=== PATIENT | female | born 1955 | race African-American/Black ===

== ENCOUNTER 2023-03-01 20:41 | Emergency (ER) | payer OTHER, MEDICAID ==
[~2023-03-01] VITALS: Ht 152.4 cm; Wt 71.0 kg
[2023-03-01 20:50] VITALS: BP 161/74
[2023-03-01 21:19] LABS: Basophils # (auto) 0.1 10 ^3/uL (0-0.2); Eosinophils # (auto) 0.1 10 ^3/uL (0-0.8); Eosinophils % (auto) 1.7 % (0.0-7.0); Hematocrit 42.7 % (36.0-46.0); Hemoglobin 14.5 g/dL (12.2-16.2); Lymphocytes # (auto) 1.6 10 ^3/uL (0.4-5.4); Lymphocytes % (auto) 21.4 % (10.0-50.0); Mean Corpuscular Hemoglobin 29.4 pg (28.0-32.0); Mean Corpuscular Hgb Conc. 33.8 g/dL (32.0-36.0); Mean Corpuscular Volume 86.8 fL (80.0-100.0); Monocytes # (auto) 0.5 10 ^3/uL (0-1.3); Monocytes % (auto) 6.3 % (0.0-12.0); Neutrophils # (auto) 5.3 10 ^3/uL (1.6-8.6); Neutrophils % (auto) 69.6 % (37.0-80.0); Nucleated Red Blood Cells % 0.1 %; Red Blood Cells 4.93 10^6/uL (4.0-5.20); Red Cell Distribution Width 13.8 % (11.8-14.3); White Blood Cell 7.6 10^3/uL (4.4-10.8)
[2023-03-01 21:33] LABS: Albumin 3.5 g/dL (3.4-5.0); BUN/Creatinine Ratio 18.1 (10.0-20.0); Potassium 3.9 mmol/L (3.5-5.1)
[2023-03-01 21:34] LABS: INR 0.99 (0.9-1.15); Partial Thromboplastin Time 26.3 sec (24.6-33.4)
[2023-03-01 21:36] LABS: Bilirubin, Total 0.4 mg/dL (0.2-1.0); Total Protein 7.1 g/dL (6.4-8.2)
== END 2023-03-02 03:44 | disposition home or self-care (01) ==
LOC: ER 20:41
DX: I10 Essential (primary) hypertension (principal); R07.89 Other chest pain; R42 Dizziness and giddiness; E11.9 Type 2 diabetes mellitus without complications; F03.90 Unspecified dementia, unspecified severity, without behavioral disturbance, psychotic disturbance, mood disturbance, and anxiety; Z86.73 Personal history of transient ischemic attack (TIA), and cerebral infarction without residual deficits; Z88.5 Allergy status to narcotic agent; Z88.8 Allergy status to other drugs, medicaments and biological substances
CPT/HCPCS: 36415; 71045; 80053; 83735; 83880; 84484; 85025; 85610; 85730; 93005

== ENCOUNTER → 2024-08-25 | Outpatient (CLI) | payer OTHER ==
[2024-08-25 10:27] LABS: Basophils # (auto) 0.1 10 ^3/uL (0-0.2); Basophils % (auto) 1.3 % (0.0-2.0); Eosinophils # (auto) 0.2 10 ^3/uL (0-0.8); Eosinophils % (auto) 2.3 % (0.0-7.0); Hematocrit 42.9 % (36.0-46.0); Hemoglobin 15.1 g/dL (12.2-16.2); Lymphocytes # (auto) 2.2 10 ^3/uL (0.4-5.4); Lymphocytes % (auto) 30.8 % (10.0-50.0); Mean Corpuscular Hemoglobin 30.6 pg (28.0-32.0); Mean Corpuscular Hgb Conc. 35.2 g/dL (32.0-36.0); Mean Corpuscular Volume 86.9 fL (80.0-100.0); Monocytes # (auto) 0.5 10 ^3/uL (0-1.3); Monocytes % (auto) 7.1 % (0.0-12.0); Neutrophils # (auto) 4.1 10 ^3/uL (1.6-8.6); Neutrophils % (auto) 58.5 % (37.0-80.0); Nucleated Red Blood Cells % 0.1 %; Platelet Count (auto) 260 10^3/uL (140-450); Red Blood Cells 4.94 10^6/uL (4.0-5.20); Red Cell Distribution Width 13.1 % (11.8-14.3); White Blood Cell 7.1 10^3/uL (4.4-10.8)
[2024-08-25 10:36] LABS: Urine Blood Negative /uL (Negative); Urine Clarity Clear (Clear); Urine Color Light-Yellow (Yellow); Urine Protein, UAD Negative (Negative); Urine Specific Gravity 1.019 (1.001-1.035); Urine Urobilinogen Normal (Negative); Urine pH 5.5 (5.0-9.0)
[2024-08-25 10:59] LABS: Albumin 4.9 g/dL (3.2-4.8); Alkaline Phosphatase 63 U/L (46-116); Anion Gap 6 (5-15); Aspartate Aminotransferase 9 U/L (13-40); Bilirubin, Total 0.6 mg/dL (0.2-1.0); Blood Urea Nitrogen 22 mg/dL (9-23); Calcium 11.1 mg/dL (8.7-10.4); Carbon Dioxide 26 mmol/L (20-31); Chloride 103 mmol/L (98-107); Cholesterol 123 mg/dL (< 200); Glucose 173 mg/dL (74-106); HDL Cholesterol 45 mg/dL (40-59); LDL Cholesterol 64 mg/dL (< 100); Potassium 3.4 mmol/L (3.5-5.1); Sodium 135 mmol/L (136-145); Triglycerides 116 mg/dL (< 150)
[2024-08-25 11:00] LABS: Total Protein 7.9 g/dL (5.7-8.2)
[2024-08-25 11:01] LABS: Creatinine, Urine 67.52 mg/dL (30.0-125.0)
[2024-08-25 11:03] LABS: Micro Albumin < 3.0 mg/L (<30.0)
[2024-08-25 11:09] LABS: Alanine Aminotransferase < 9 U/L (7-40)
== END | disposition home or self-care (01) ==
LOC: LAB 09:58
DX: Z12.11 Encounter for screening for malignant neoplasm of colon (principal); E11.65 Type 2 diabetes mellitus with hyperglycemia; I10 Essential (primary) hypertension
CPT/HCPCS: 36415; 80053; 80061; 81003; 82043; 82306; 82570; 82607; 83036; 84443; 85025

== ENCOUNTER 2024-11-13 21:38 | Inpatient (IN) | payer OTHER ==
[~2024-11-13] VITALS: Ht 152.4 cm; Wt 60.4 kg
--- NOTE | 2024-11-13 21:53 | ED.PDOC ---
History of Present Illness HPI Comments 69-year-old female with PMHx Dementia, CVA, HTN, DM brought in by EMS presents with a chief complaint of s/p syncopal episode at home. Per EMS, patient had a syncopal episode at home and was assisted to the floor by family. Negative LOC or trauma. Patient only complaint at this time is "weak and tired". Patient is also incontinent to urine and diarrhea according to EMS. Patient has gait issues from a previous CVA in the past. No other symptoms or modifying factors present at this time. Chief Complaint: Syncope Time Seen by MD: 21:48 Reviewed Notes: Medications, Allergies Allergies: Coded Allergies: Acetaminophen (Verified Allergy, Unknown, 03/01/23) Hydrocodone (Verified Allergy, Unknown, 03/01/23) Information Source: Emergency Med Personnel Mode of Arrival: EMS Severity: Moderate Timing: Minutes Duration: Since onset Prehospital treatment: Accucheck (365) Past Medical History PAST MEDICAL HISTORY: CVA, Dementia, DM, HTN Surgical History: Denies all surgeries [employer] INTERN History: Denies all [employer] Hx Family History Family History: Reviewed,noncontributory to illness Social History Smoker: Non-Smoker Alcohol: Denies ETOH Use Drugs: Denies Drug Use Lives In: Home Constitutional: denies: chills, diaphoresis, fatigue, fever, malaise, sweats, weakness, others EENTM: denies: blurred vision, double vision, ear bleeding, ear discharge, ear drainage, ear pain, ear ringing, eye pain, eye redness, hearing loss, mouth pain, mouth swelling, nasal discharge, nose bleeding, nose congestion, nose pain, photophobia, tearing, throat pain, throat swelling, voice changes, others Respiratory: denies: cough, hemoptysis, orthopnea, SOB at rest, shortness of breath, SOB with excertion, stridor, wheezing, others Cardiovascular: reports: syncope; denies: chest pain, dizzy spells, diaphoresis, Dyspnea on exertion, edema, irregular heart beat, left arm pain, lightheadedness, palpitations, PND, others Gastrointestinal: denies: abdomen distended, abdominal pain, blood streaked bowels, constipated, diarrhea, dysphagia, difficulty swallowing, hematemesis, melena, nausea, poor appetite, poor fluid intake, rectal bleeding, rectal pain, vomiting, others Genitourinary: denies: abnormal vagina bleeding, burning, dyspareunia, dysuria, flank pain, frequency, hematuria, incontinence, pain, , vagina discharge, urgency, others Neurological: denies: dizziness, fainting, headache, left sided numbness, left sided weakness, numbness, paresthesia, pre-existing deficit, right sided numbness, right sided weakness, seizure, speech problems, tingling, tremors, weakness, others Musculoskeletal: denies: back pain, gout, joint pain, joint swelling, muscle pain, muscle stiffness, neck pain, others Integumetry: denies: bruises, change in color, change in hair/nails, dryness, laceration, lesions, lumps, rash, wounds, others Allergic/Immunocompromised: denies: Difficulty Healing, Frequent Infections, Hives, Itching, others Hematologic/Lymphatic: denies: anemia, blood clots, easy bleeding, easy bruising, swollen glands, others Endocrine: denies: excessive hunger, excessive sweating, excessive thirst, excessive urination, flushing, intolerance to cold, intolerance to heat, unexplained weight gain, unexplained weight loss, others Psychiatric: denies: anxiety, bipolar disorder, depression, hopeless, panic disorder, schizophrenia, sleepless, suicidal, others Unable to Obtain due to: Dementia All Other Systems: Reviewed and Negative Physical Exam General Appearance: No Apparent Distress, Thin HEENT: Normal ENT Inspection, Pharynx Normal, TMs Normal Neck: Full Range of Motion, Non-Tender, Normal, Normal Inspection Respiratory: Chest Non-Tender, Lungs Clear, No Accessory Muscle Use, No Respiratory Distress, Normal Breath Sounds Cardiovascular: No Edema, No JVD, No Murmur, No Gallop, Normal Peripheral Pulses, Regular Rate/Rhythm Breast Exam: Deferred Gastrointestinal: No Organomegaly, Non Tender, No Pulsatile Mass, Normal Bowel Sounds, Soft Genitalia: Deferred Pelvic: Deferred Rectal: Deferred Extremities: No calf tenderness, Normal capillary refill, Normal inspection, Normal range of motion, Non-tender, No pedal edema Musculoskeletal : Apperance: Normal Neurologic: Alert, record tabulating clerk II-XII nml as Tested, No Motor Deficits, Normal Affect, Normal Mood, No Sensory Deficits Cerebellar Function: Normal Reflexes: Normal Skin: Dry, Normal Color, Warm Lymphatic: No Adenopathy Was a procedure done? Was a procedure done?: No Differential Dx Considerations may include: ACS, CVA, electrolyte abnormality, pneumonia, infectious etiology him X-Ray, Labs, Meds, VS Vital Signs Date Time Temp Pulse Resp B/P (MAP) Pulse Ox O2 Delivery O2 Flow Rate FiO2 11/14/24 00:00 90 19 176/90 (118) 93 11/13/24 22:15 85 12 138/72 (94) 94 11/13/24 22:15 85 12 94 Room Air* 0 21 11/13/24 22:15 97.7 85 12 138/72 (94) 94 97.7 11/13/24 21:47 98.7 90 18 125/78 (94) 99 11/13/24 21:44 82 Lab Test 11/13/24 23:16 11/13/24 21:59 Range/Units Troponin I High Sensitivity 6 6 </=34 ng/L White Blood Count 7.5 4.4-10.8 10^3/uL Red Blood Count 5.36 H 4.0-5.20 10^6/uL Hemoglobin 16.1 12.2-16.2 g/dL Hematocrit 48.5 H 36.0-46.0 % Mean Corpuscular Volume 90.5 80.0-100.0 fL Mean Corpuscular Hemoglobin 30.0 28.0-32.0 pg Mean Corpuscular Hemoglobin Concent 33.1 32.0-36.0 g/dL Red Cell Distribution Width 13.8 11.8-14.3 % Platelet Count 234 140-450 10^3/uL Mean Platelet Volume 8.3 6.9-10.8 fL Neutrophils (%) (Auto) 69.6 37.0-80.0 % Lymphocytes (%) (Auto) 21.2 10.0-50.0 % Monocytes (%) (Auto) 6.6 0.0-12.0 % Eosinophils (%) (Auto) 1.5 0.0-7.0 % Basophils (%) (Auto) 1.1 0.0-2.0 % Neutrophils # (Auto) 5.2 1.6-8.6 10 ^3/uL Lymphocytes # (Auto) 1.6 0.4-5.4 10 ^3/uL Monocytes # (Auto) 0.5 0-1.3 10 ^3/uL Eosinophils # (Auto) 0.1 0-0.8 10 ^3/uL Basophils # (Auto) 0.1 0-0.2 10 ^3/uL Nucleated Red Blood Cells 0.0 % Sodium Level 137 136-145 mmol/L Potassium Level 4.0 3.5-5.1 mmol/L Chloride Level 106 98-107 mmol/L Carbon Dioxide Level 25 20-31 mmol/L Anion Gap 6 5-15 Blood Urea Nitrogen 12 9-23 mg/dL Creatinine 1.25 H 0.550-1.02 mg/dL Glomerular Filtration Rate Calc 47 >90 mL/min BUN/Creatinine Ratio 9.6 L 10.0-20.0 Serum Glucose 379 H 74-106 mg/dL Calcium Level 11.1 H 8.7-10.4 mg/dL Current Medications Medications (Trade) Dose Ordered Sig/Kishan Route Start Time Stop Time Status Last Admin Sodium Chloride 1,000 ml @ 1,000 mls/hr Q1H ONCE IV 11/13/24 22:00 11/13/24 22:59 DC 11/13/24 22:16 Calcium Carbonate (Tums) 500 mg ONCE ONCE PO 11/13/24 23:45 11/13/24 23:46 DC 11/13/24 23:38 Time of 1ST Reevaluation: 22:18 Reevaluation 1ST: Unchanged Patient Education/Counseling: Diagnosis, Treatment, Prognosis Family Education/Counseling: Diagnosis, Treatment, Prognosis Departure 1 Departure Time of Disposition: 00:52 (Patient presented with syncope today and should be admitted. Data: 1. I ordered and reviewed the result of at least 3 labs including a CBC, BMP, and troponin. 2. I independently interpreted the following tests: EKG which shows a sinus tachycardia and a chest x-ray which shows _ he is denying chest and a CT head which shows chronic infarct.Risk:This patient has a high risk of morbidity due to further diagnostic testing or treatment and may woods ffer from an acute cardiac, neurologic, or infectious disorder. Rationale: Patient should be admitted to the hospital for further management.) Impression: Primary Impression: Syncope and collapse Additional Impression: Fever Qualified Codes: R50.9 - Fever, unspecified Disposition: ADMITTED INPATIENT Admit to: Med Surg Condition: Serious Critical Care Note Critical Care Time?: No Stability Stability form required: No I personally scribed for MIHIR MARQUEZ MD ([email or web address]) on 11/13/24 at 21:53. Electronically submitted by Isac Gaitan ([email or web address]). MIHIR MARQUEZ MD Nov 13, 2024 21:53
[2024-11-13 22:08] LABS: Basophils # (auto) 0.1 10 ^3/uL (0-0.2); Basophils % (auto) 1.1 % (0.0-2.0); Eosinophils # (auto) 0.1 10 ^3/uL (0-0.8); Eosinophils % (auto) 1.5 % (0.0-7.0); Hematocrit 48.5 % (36.0-46.0); Hemoglobin 16.1 g/dL (12.2-16.2); Lymphocytes # (auto) 1.6 10 ^3/uL (0.4-5.4); Lymphocytes % (auto) 21.2 % (10.0-50.0); Mean Corpuscular Hgb Conc. 33.1 g/dL (32.0-36.0); Mean Corpuscular Volume 90.5 fL (80.0-100.0); Monocytes # (auto) 0.5 10 ^3/uL (0-1.3); Monocytes % (auto) 6.6 % (0.0-12.0); Neutrophils # (auto) 5.2 10 ^3/uL (1.6-8.6); Neutrophils % (auto) 69.6 % (37.0-80.0); Platelet Count (auto) 234 10^3/uL (140-450); Red Blood Cells 5.36 10^6/uL (4.0-5.20); Red Cell Distribution Width 13.8 % (11.8-14.3); White Blood Cell 7.5 10^3/uL (4.4-10.8)
[2024-11-13 22:15] VITALS: PULSE 85; RESP 12; O2SAT 94
[2024-11-13] MEDS: SODIUM CHLORIDE 0.9% 1,000 ML IV ONE (22:16)
[2024-11-13 22:19] LABS: Chloride 106 mmol/L (98-107); Sodium 137 mmol/L (136-145)
[2024-11-13 22:20] LABS: Anion Gap 6 (5-15); Carbon Dioxide 25 mmol/L (20-31)
[2024-11-13 22:25] LABS: BUN/Creatinine Ratio 9.6 (10.0-20.0); Blood Urea Nitrogen 12 mg/dL (9-23)
[2024-11-13 22:32] LABS: Calcium 11.1 mg/dL (8.7-10.4); Glucose 379 mg/dL (74-106)
--- NOTE | 2024-11-13 23:25 | ECG ---
[facility] Test Date: 2024-11-13 Test Time: 21:44:53 Pat Name: BRITT GALAN Department: ED Room: [address] [place] [address] Gender: F Tile Professional: KAY : 1955 Requested By: MIHIR MARQUEZ Order Number: [id number] Reading MD: Dick Robbins Measurements Intervals [place] Rate: 82 P: 26 OR: 134 QRS: 7 QRSD: 92 T: 78 QT: 389 QTc: 455 Interpretive Statements Sinus rhythm Probable left atrial enlargement Left ventricular hypertrophy Anterior Q waves, possibly due to LVH Nonspecific T abnormalities, lateral leads Baseline wander in lead(s) V4 Electronically Signed On 11-14-2024 13:12:19 PST by Dick Robbins Please click the below link to view image of tracing.
[2024-11-13] MEDS: CALCIUM CARB 500 MG CHEW TAB PO ONE (23:38)
--- NOTE | 2024-11-13 23:43 | DVH ---
EXAM: CT HEAD WITHOUT CONTRAST INDICATION: syncope TECHNIQUE: CT of the head without intravenous contrast. Radiation Dose Information: CT Dose: CTDI volume is 49.67 mGy. Dose-length product is 796.47 mGy*cm The dose indicators for CT are the volume Computed Tomography (CT) Dose Index (CTDIvol) and the Dose Length Product (DLP), and are measured in units of mGy and mGy-cm, respectively. These indicators are not patient dose, but values generated from the CT scanner acquisition factors. The report includes radiation exposure data for exposures received during this examination. COMPARISON: None FINDINGS: There is no evidence of acute intracranial hemorrhage, extra-axial collection, mass effect, midline s hift, herniation or hydrocephalus. Small area of decreased attenuation posterior limb of the internal capsule on the right consistent wi th small lacunar infarct. Prominent area of hypoattenuation left posterior parietal lobeobe suggesting old infarct. No prior st udies for comparison The ventricles, sulci and cisterns are age appropriate. The kaiser-white differentiation is intact. Patchy periventricular and subcortical white matter hypoattenuation is nonspecific but may be related to small vessel ischemic disease. The visualized paranasal sinuses and mastoid air cells are clear. The surrounding soft tissues and osseous structures are unremarkable. IMPRESSION: 1. No acute intracranial hemorrhage. 2. Hypoattenuation area in the posterior right parietal lobe consistent with old area of infarct. 3. Small area of hypoattenuation posterior limb right internal capsule may represent a small lacunar infarct.
--- NOTE | 2024-11-14 00:40 | DVH ---
EXAM: XY CHEST PORTABLE CLINICAL HISTORY: syncope TECHNIQUE: Single AP view of the chest WID: COMPARISON: XY CHEST PORTABLE on DOS: 03/01/23 FINDINGS: Lines and tubes: None Chest: The heart size and pulmonary vasculature is within normal limits. Calcified plaque projects over the aortic arch. No pleural effusion, pneumothorax, or consolidation. The osseous structures are grossly intact. IMPRESSION: No acute cardiopulmonary abnormality.
--- NOTE | 2024-11-14 01:50 | DVHHPRES ---
History of Present Illness Resident Creating Document: ERMA LANDRY RESIDENT History of Present Illness This is a 69-year-old female with past medical history of hypertension, hyperlipidemia, COPD, type 2 diabetes mellitus, CVA presented to the ED for an evaluation of near syncopal event without loss of consciousness happened earlier today. Patient states that today after lunch when she was stand up and about to went to the kitchen she suddenly felt dizzy and fall down and lasted for few seconds witnessed by the family without any loss of consciousness. She denies nausea, palpitation, chest pain, headache, diaphoresis or any incontinence associated with this event. She also mentioned she had 2 times syncopal event in last 2 years. The patient is admitted for further evaluation and management of recurrent syncopal event. Past Medical History Hypertension, hyperlipidemia, COPD, type 2 diabetes mellitus, CVA Past Surgical History Right knee surgery and cholecystectomy Family History None Past Social History Lives with sister in law Smoke 1 pack per day for last 50 years, occasional drinker and history of polysubstance abuse. Review of Systems Constitutional: No: Fever, Chills, Sweats, Weakness, Malaise, Other Eyes: No: Pain, Vision change, Conjunctivae inflammation, Eyelid inflammation, Other, Redness ENT: No: Ear pain, Ear discharge, Nose pain, Nose discharge, Nose congestion, Mouth pain, Mouth swelling, Throat pain, Throat swelling, Other Respiratory: No: Cough, Dry, Shortness of breath, SOB with excertion, Wheezing, Hemoptysis, Pleuritic Pain, Sputum, Wheezing, Other Cardiovascular: Lt Headedness; No: Chest Pain, Palpitations, Orthopnea, Paroxysmal Noc. Dyspnea, Edema, Other Gastrointestinal: No: Nausea, Vomiting, Abdominal Pain, Diarrhea, Constipation, Melena, Hematochezia, Other Genitourinary: No Dysuria, No Frequency, No Incontinence, No Hematuria, No Retention, No Other Musculoskeletal: No: other, neck pain, shoulder pain, arm pain, back pain, hand pain, leg pain, foot pain Skin: No: Rash, Lesions, Jaundice, Bruising, Other Neurological: No: Weakness, Numbness, Incoordination, Change in speech, Confusion, Seizures, Other Allergies: Coded Allergies: Acetaminophen (Verified Allergy, Unknown, 03/01/23) Hydrocodone (Verified Allergy, Unknown, 4/10/23) Medications Current Medications Medications Dose Ordered Sig/Kishan Route Start Time Stop Time Status Last Admin Dose Admin Aspirin 81 mg DAILY PO 11/14/24 10:00 UNV Atorvastatin Calcium 40 mg HS PO 11/14/24 22:00 UNV Losartan Potassium 50 mg DAILY PO 11/14/24 10:00 UNV Labetalol HCl 5 mg Q2HPRN PRN IV 11/14/24 01:45 UNV Exam Vital Signs Vital Signs Date Time Temp Pulse Resp B/P (MAP) Pulse Ox O2 Delivery O2 Flow Rate FiO2 11/14/24 00:00 90 19 176/90 (118) 93 11/13/24 22:15 Room Air* 0 21 11/13/24 22:15 97.7 97.7 Exam Physical examination: General Appearance: Alert, Oriented X3, Cooperative, No acute distress HEENT: Atraumatic, PERRLA, EOMI, Mucous membrane moist/pink Respiratory: Clear to auscultation, Normal air movement Cardiovascular: Regular rate, Normal S1, Normal S2, No murmurs, no chest wall tenderness Abdominal: Normal bowel sounds, Soft, No tenderness, No hepatospenomegaly, No masses Extremities: No clubbing, No cyanosis, No edema, Normal pulses, No tenderness/swelling Skin: No rashes, No breakdown, No significant lesion Neuro: Normal gait, Normal speech, Strength at 5/5 X4 ext, Normal tone, Sensation intact, grossly intact cranial nerves Psych/Mental Status: Mental status NL, Mood NL Labs/Xrays Labs Test 11/13/24 23:16 11/13/24 21:59 Range/Units Troponin I High Sensitivity 6 </=34 ng/L White Blood Count 7.5 4.4-10.8 10^3/uL Red Blood Count 5.36 H 4.0-5.20 10^6/uL Hemoglobin 16.1 12.2-16.2 g/dL Hematocrit 48.5 H 36.0-46.0 % Mean Corpuscular Volume 90.5 80.0-100.0 fL Mean Corpuscular Hemoglobin 30.0 28.0-32.0 pg Mean Corpuscular Hemoglobin Concent 33.1 32.0-36.0 g/dL Red Cell Distribution Width 13.8 11.8-14.3 % Platelet Count 234 140-450 10^3/uL Mean Platelet Volume 8.3 6.9-10.8 fL Neutrophils (%) (Auto) 69.6 37.0-80.0 % Lymphocytes (%) (Auto) 21.2 10.0-50.0 % Monocytes (%) (Auto) 6.6 0.0-12.0 % Eosinophils (%) (Auto) 1.5 0.0-7.0 % Basophils (%) (Auto) 1.1 0.0-2.0 % Neutrophils # (Auto) 5.2 1.6-8.6 10 ^3/uL Lymphocytes # (Auto) 1.6 0.4-5.4 10 ^3/uL Monocytes # (Auto) 0.5 0-1.3 10 ^3/uL Eosinophils # (Auto) 0.1 0-0.8 10 ^3/uL Basophils # (Auto) 0.1 0-0.2 10 ^3/uL Nucleated Red Blood Cells 0.0 % Sodium Level 137 136-145 mmol/L Potassium Level 4.0 3.5-5.1 mmol/L Chloride Level 106 98-107 mmol/L Carbon Dioxide Level 25 20-31 mmol/L Anion Gap 6 5-15 Blood Urea Nitrogen 12 9-23 mg/dL Creatinine 1.25 H 0.550-1.02 mg/dL Glomerular Filtration Rate Calc 47 >90 mL/min BUN/Creatinine Ratio 9.6 L 10.0-20.0 Serum Glucose 379 H 74-106 mg/dL Calcium Level 11.1 H 8.7-10.4 mg/dL Assessment/Plan Assessment/Plan Assessment and plan: # Near syncopal event likely due to autonomic instability, rule out stroke/arrhythmia - Admitted the patient in telemetry - Ordered orthostatic vital - IV normal saline at 75 mL/hour - EKG revealed sinus rhythm with LVH and troponins are unremarkable - CT head without contrast revealed old infarct - Ordered carotid Doppler, echo, UDS, TSH, B12 and folic acid - Consulted Cardiology. # Hypertensive emergency - Continue losartan 50 mg p.o. daily - IV labetalol 5 mg q.2h p.r.n. - Monitor BP closely. # Hypercalcemia likely due to dehydration - IV normal saline at 75 mL/hour - Monitor BMP # Type 2 diabetes mellitus, HbA1C 8.8 - Insulin Lantus 20 units at q.a.m. - Moderate sliding scale of insulin # History of CVA with no residual weakness - Aspirin 81 mg p.o. daily and atorvastatin 40 mg at HS # Nicotine dependence and history of polysubstance abuse disorder - Counseled patient regarding quit smoking, drug abuse and rehabilitation # PUD prophylaxis - Protonix 40 mg p.o. daily # DVT prophylaxis - Lovenox 40 mg sc daily Goal of care discussed with the patient for more than 20 minutes full code Plan discussed with Dr. Germain Plan discussed with: Patient, Other My Orders Orders - ERMA LANDRY RESIDENT Procedure Category Date Status Time Admit ADMIT 11/14/24 Transmitted 01:20 Millinery Department Manager For CARLOS 11/14/24 In Process 24 Hours 01:20 Echo 2d Mode Cardiac US 11/14/24 Logged DOP 01:20 Carotid Duplx W Color US 11/14/24 Logged DOP 01:20 Drug Screen LAB 11/14/24 Logged 01:20 Urinalysis LAB 11/14/24 Logged 01:20 Aspirin Enteric PHA 11/14/24 Logged Coated Tablet 10:00 Atorvastatin (Lipitor) PHA 11/14/24 Logged 22:00 Covid19 Antigen Sandra LAB 11/14/24 Logged Rapid Influenza A&B LAB 11/14/24 Logged 01:31 Thyroid Stimulating LAB 11/14/24 In Process Hormone 01:31 Losartan Tablet PHA 11/14/24 Logged (Cozaar Tablet) 10:00 Labetalol Hcl PHA 11/14/24 Logged (Labetalol Hcl) 01:45 Date of Service: Nov 14, 2024 Billing Provider: EDINSON GERMAIN MD Common Visit Codes: 05308-JHKKXDM INP/OBS CARE (HIGH) Secondary Visit Codes: 74182-[id number] CARE PLAN 30 MINUTES ERMA LANDRY Nov 14, 2024 01:50 EDINSON GERMAIN MD Nov 14, 2024 16:20
[2024-11-14 02:50] LABS: COVID19 ANTIGEN SOFIA FIA NEGATIVE (NEGATIVE)
[2024-11-14 02:51] LABS: Rapid Influenza A Negative (Negative); Rapid Influenza B Negative (Negative)
[2024-11-14] MEDS ORDERED: DEXTROSE (50%) 50ML SYRG IV PRN (03:00)
[2024-11-14] MEDS: LABETALOL HCL 20 MG/4 ML VL IV PRN (03:40)
[2024-11-14 05:41] LABS: Basophils # (auto) 0.1 10 ^3/uL (0-0.2); Basophils % (auto) 1.3 % (0.0-2.0); Eosinophils # (auto) 0.1 10 ^3/uL (0-0.8); Eosinophils % (auto) 1.4 % (0.0-7.0); Hematocrit 45.5 % (36.0-46.0); Hemoglobin 14.9 g/dL (12.2-16.2); Lymphocytes # (auto) 2.4 10 ^3/uL (0.4-5.4); Lymphocytes % (auto) 34.4 % (10.0-50.0); Mean Corpuscular Hemoglobin 29.4 pg (28.0-32.0); Mean Corpuscular Hgb Conc. 32.8 g/dL (32.0-36.0); Mean Corpuscular Volume 89.5 fL (80.0-100.0); Monocytes # (auto) 0.6 10 ^3/uL (0-1.3); Monocytes % (auto) 8.2 % (0.0-12.0); Neutrophils # (auto) 3.8 10 ^3/uL (1.6-8.6); Neutrophils % (auto) 54.7 % (37.0-80.0); Nucleated Red Blood Cells % 0.2 %; Platelet Count (auto) 235 10^3/uL (140-450); Red Blood Cells 5.08 10^6/uL (4.0-5.20); Red Cell Distribution Width 13.6 % (11.8-14.3); White Blood Cell 6.9 10^3/uL (4.4-10.8)
[2024-11-14 05:55] LABS: Folate (Folic Acid) 12.53 ng/mL (>5.38)
[2024-11-14] MEDS: PANTOPRAZOLE 40 MG TAB PO SCH (06:22)
[2024-11-14] MEDS: InsuLIN REG 1unit/0.01ml Soln (100units/ml) SC SCH ×2 (06:41→21:33)
[2024-11-14] MEDS: INSULIN LANTUS (GLARGINE) 1 /0.01ml (100units/ml) SC SCH (06:42)
[2024-11-14] MEDS: ACCU-CHEK COMFORT CURVE STRIP VI SCH (06:42)
[2024-11-14 07:30] VITALS: PULSE 81; RESP 12; O2SAT 95
--- NOTE | 2024-11-14 09:08 | DVH ---
Carotid Duplex Clinical History: Syncope Comparison: None Technique: Duplex Doppler evaluation of the extracranial carotid and vertebral arteries including color Doppler and spectral/pulsed waveform analysis was performed. Findings: RIGHT SIDE: The peak systolic velocities are 68 cm/s in the CCA, 62 cm/s in the ICA. The ICA/CCA ratio is 0.9. The external carotid artery is patent with peak systolic velocity of 178 cm/s proximally. There is appropriate antegrade flow in the right vertebral artery. LEFT SIDE: The peak systolic velocities are 63 cm/s in the CCA, 95 cm/s in the ICA. The ICA/CCA ratio is 1.5. The external carotid artery is patent with peak systolic velocity of 67 cm/s proximally. There is appropriate antegrade flow in the left vertebral artery. IMPRESSION: Atheromatous plaque is present in the bilateral carotid bulbs. Less than 50% stenosis of bilateral internal carotid artery system. Reference: Radiology 2003; 229:340-346 Normal ICA PSV is <125 cm/sec and no plaque or intimal thickening is visible sonographically additional criteria include ICA/CCA PSV ratio <2.0 and ICA EDV <40 cm/sec <50% ICA stenosis ICA PSV is <125 cm/sec and plaque or intimal thickening is visible sonographically additional criteria include ICA/CCA PSV ratio <2.0 and ICA EDV <40 cm/sec 50-69% ICA stenosis ICA PSV is 125-230 cm/sec and plaque is visible sonographically additional criteria include ICA/CCA PSV ratio of 2.0-4.0 and ICA EDV of 40-100 cm/sec 70% ICA stenosis but less than near occlusion ICA PSV is >230 cm/sec and visible plaque and luminal narrowing are seen at kaiser-scale and color Dopp ler ultrasound (the higher the Doppler parameters lie above the threshold of 230 cm/sec, the greater the likelihood of severe disease) additional criteria include ICA/CCA PSV ratio >4 and ICA EDV >100 cm/sec
[2024-11-14 09:43] LABS: Magnesium 1.9 mg/dL (1.6-2.6)
[2024-11-14] MEDS: ASPirin-EC 81 mg tab PO SCH (10:26)
[2024-11-14] MEDS: LOSARTAN POTASSIUM 50 MG TAB PO SCH (10:28)
[2024-11-14] MEDS: ENOXAPARIN SOD 40 MG/0.4 ML SYRINGE SC SCH (10:28)
--- NOTE | 2024-11-14 10:46 | DVHCONRES ---
Date Seen: Nov 14, 2024 Resident Creating Document: ROSE MARIE MARK RESIDENT Reason for Consultation Presyncope History of Present Illness Lucinda Solis is a 69-year-old female with a PMH of HTN, HLD, COPD, type 2 DM, CVA, active smoker presented to the ED with the chief complaints of near syncopal event. Patient reported yesterday after lunch, sister and, felt suddenly dizzy and fall down without loss of consciousness, witnessed by family. Patient reported no history of heart issues, palpitations, fever, nausea, diaphoresis and other acute associated symptoms. Patient reported, she had 2 times syncopal event in last 2 years. Past Medical History HTN, HLD, COPD, type 2 DM, CVA Past Surgical History Right knee surgery and cholecystectomy Family History Heart disease in mother Social History Lives with family. Smokes 1 pack per day for last 20 years, occasional alcohol abuse and history of polysubstance abuse. Allergies: Coded Allergies: Acetaminophen (Verified Allergy, Unknown, 03/01/23) Hydrocodone (Verified Allergy, Unknown, 03/01/23) Current Medications Current Medications Medications (Trade) Dose Ordered Sig/Kishan Route PRN Reason Start Time Stop Time Status Last Admin Aspirin (Ecotrin Enteric Coated Tablet) 81 mg DAILY PO 11/14/24 10:00 Atorvastatin Calcium (Lipitor) 40 mg HS PO 11/14/24 22:00 Losartan Potassium (Cozaar Tablet) 50 mg DAILY PO 11/14/24 10:00 Labetalol HCl (Labetalol HCl) 5 mg Q2HPRN PRN IV SBP>150 11/14/24 01:45 11/14/24 03:40 Diagnostic Test (Pha) (Accu-Chek Comfort Curve T) 1 strip ACHS 11/14/24 07:00 11/14/24 06:42 Insulin Human Regular (InsuLIN R) HS SC 11/14/24 22:00 Insulin Human Regular (InsuLIN R) AC SC 11/14/24 07:00 11/14/24 06:41 Dextrose 50 ml UD PRN IV Blood Sugar LESS THAN 60 11/14/24 03:00 Pantoprazole Sodium (Protonix Tablet) 40 mg DAILY@0600 PO 11/14/24 06:00 11/14/24 06:22 Enoxaparin Sodium (Lovenox) 40 mg DAILY SC 11/14/24 10:00 Insulin Glargine (Lantus) 20 units QAM [place] 11/14/24 07:00 11/14/24 06:42 Review of Systems Patient seen and examined at the bedside. Reported improvement in her symptoms since admission, no new complaints. Vital Signs Vital Signs Date Time Temp Pulse Resp B/P (MAP) Pulse Ox O2 Delivery O2 Flow Rate FiO2 11/14/24 08:00 75 11/14/24 07:30 12 95 Room Air* 0 21 11/14/24 06:00 136/68 (90) 11/13/24 22:15 97.7 97.7 Physical Exam Pt is lying on bed General Appearance: Alert, Oriented X3, Cooperative, Not in acute distress HEENT: Atraumatic, Mucous membranes moist/pink Respiratory: Clear to auscultation, Normal air movement, No added sounds Cardiovascular: Regular rate, Normal S1, Normal S2, No murmurs Abdominal: Active bowel sounds, Soft, no distention, no tenderness Extremities: No edema, Normal pulses, No tenderness/swelling Skin: No Significant rash, except past surgical scars Neuro: Normal speech, sensorimotor deficits none Psych/Mental Status: Mental status NL, Mood NL Nurse was there as sharperone during examination Labs/Diagnostic Data Labs Test 11/14/24 05:03 11/14/24 02:16 11/13/24 23:16 11/13/24 21:59 Range/Units White Blood Count 6.9 4.4-10.8 10^3/uL Red Blood Count 5.08 4.0-5.20 10^6/uL Hemoglobin 14.9 12.2-16.2 g/dL Hematocrit 45.5 36.0-46.0 % Mean Corpuscular Volume 89.5 80.0-100.0 fL Mean Corpuscular Hemoglobin 29.4 28.0-32.0 pg Mean Corpuscular Hemoglobin Concent 32.8 32.0-36.0 g/dL Red Cell Distribution Width 13.6 11.8-14.3 % Platelet Count 235 140-450 10^3/uL Mean Platelet Volume 8.4 6.9-10.8 fL Neutrophils (%) (Auto) 54.7 37.0-80.0 % Lymphocytes (%) (Auto) 34.4 10.0-50.0 % Monocytes (%) (Auto) 8.2 0.0-12.0 % Eosinophils (%) (Auto) 1.4 0.0-7.0 % Basophils (%) (Auto) 1.3 0.0-2.0 % Neutrophils # (Auto) 3.8 1.6-8.6 10 ^3/uL Lymphocytes # (Auto) 2.4 0.4-5.4 10 ^3/uL Monocytes # (Auto) 0.6 0-1.3 10 ^3/uL Eosinophils # (Auto) 0.1 0-0.8 10 ^3/uL Basophils # (Auto) 0.1 0-0.2 10 ^3/uL Nucleated Red Blood Cells 0.2 % Hemoglobin A1c 8.8 H <5.7 % A1C Magnesium Level 1.9 1.6-2.6 mg/dL B-Type Natriuretic Peptide 132.11 0-100 pg/mL Triglycerides Level 113 < 150 mg/dL Cholesterol Level 160 < 200 mg/dL LDL Cholesterol 96 < 100 mg/dL HDL Cholesterol 53 40-59 mg/dL Vitamin B12 Level 345 211-911 pg/mL Folic Acid 12.53 >5.38 ng/mL Thyroid Stimulating Hormone (TSH) 1.15 0.55-4.78 uIU/mL Influenza Type A Antigen Negative Negative Influenza Type B Antigen Negative Negative SARS-CoV-2 Antigen (Rapid) Negative NEGATIVE Troponin I High Sensitivity 6 </=34 ng/L Sodium Level 137 136-145 mmol/L Potassium Level 4.0 3.5-5.1 mmol/L Chloride Level 106 98-107 mmol/L Carbon Dioxide Level 25 20-31 mmol/L Anion Gap 6 5-15 Blood Urea Nitrogen 12 9-23 mg/dL Creatinine 1.25 H 0.550-1.02 mg/dL Glomerular Filtration Rate Calc 47 >90 mL/min BUN/Creatinine Ratio 9.6 L 10.0-20.0 Serum Glucose 379 H 74-106 mg/dL Calcium Level 11.1 H 8.7-10.4 mg/dL Assessment Presyncope To rule out tachy or Stoney arrhythmias Ruled out structural heart disease Hypertensive urgency Uncontrolled type 2 diabetes mellitus Ruled out severe carotid stenosis Ruled out orthostatic hypotension History of CVA Plan/Recommendation We will continue with the following plan/recommendations (Dr. Beach): Continue telemetry monitoring Telemetry showed 1 episode sinus pause which lasts less than 2 seconds EKG showed normal sinus rhythm without AV blocks, showing findings of LVH Echocardiogram showe LVEF 65% Orthostatic vitals, negative Stop Diuretics if taking Continue Aspirin Lipid lowering agent BP control (avoid diuretics, alpha blockers) Discussed with Dr. Knox, no urgent intervention needed at this time, patient would be benefit from outpatient event monitor with possible stress test. Patient have already scheduled appointment on November 16, [address] Robbins. We will continue monitoring for now. Plan discussed with: Patient Visit Coding Cardiology RES Date of Service: Nov 14, 2024 Billing Provider: ADEOLA KNOX MD Cardiology Common Codes: 73884-KFOVKOP INP/OBS CARE (Mod) ROSE MARIE MARK RESIDENT Nov 14, 2024 10:46
--- NOTE | 2024-11-14 13:14 | DVHSR ---
APPROVED REPORT EXAM: Two-dimensional and M-mode echocardiogram with Doppler and color Doppler. Blood Pressure: 136/68 mmHg INDICATION Syncope RISK FACTORS Height: 5'7, Weight: 165 DIMENSIONS LVDd2.7 (3.8-5.7cm)LA (2D)4.2 (1.9-4.0cm)Aortic Root3.1 (2.0-3.7cm) LVDs1.9 (2.5-4.0cm)LA (MM) (1.9-4.0cm)Aortic Cusp Exc0.9 (1.5-2.0cm) EF (%) 55.0 (55-70%)Rt. Atrium3.1 (1.9-4.0cm)Asc. Aorta2.8 cm IVSd1.5 (0.7-1.1cm)RV (D) (1.8-2.4cm) PWd1.5 (0.7-1.1cm) Mitral Valve MitralMitral Stenosis E wave0.60m/sMV Mean GR.mmHg A wave1.05m/sMV Peak GR.mmHg E/A ratio0.62D MVAcm2 DECEL [id number] 1/2 Timems Aortic Valve Aortic ValveAortic Stenosis V11.18m/Mohan Mean GR.5mmHg V21.46m/Mohan Peak GR.9mmHg LVOT Diameter1.9 (1.8-2.4cm)Doppler AVA2.29cm2 Pulmonic Valve V20.97m/s Conclusion Moderately concentric left ventricular hypertrophy. Normal left ventricular systolic function estima jose roberto ejection fraction of 65%. There is a grade 1 diastolic dysfunction. There is mild intracavitary gradient secondary to LVH Normal right ventricular size and dimension. Normal right ventricular systolic function. Normal biatrial size and dimension. Normal aortic valve structure and function. Normal mitral valve structure and function. Normal tricuspid valve structure and function. The pulmonary valve is grossly normal. No pericardial effusion.
--- NOTE | 2024-11-14 14:16 | ECG ---
[facility] Test Date: 2024-11-14 Test Time: 11:24:47 Pat Name: BRITT GALAN Department: ER Room: 0214 Gender: F Regulatory Affairs Spec: YANET : 1955 Requested By: MIHIR MARQUEZ Order Number: [id number] Reading MD: Dick Robbins Measurements Intervals [place] Rate: 71 P: -26 HI: 123 QRS: 18 QRSD: 83 T: 172 QT: 393 QTc: 428 Interpretive Statements Sinus rhythm LVH with secondary repolarization abnormality Anterior infarct, old Electronically Signed On 11-16-2024 14:16:33 PST by Dick Robbins Please click the below link to view image of tracing.
[2024-11-14 14:49] VITALS: PULSE 85; RESP 18; O2SAT 96
[2024-11-14 14:52] VITALS: BP 150/88; PULSE 72; RESP 17; TEMP 97.7; O2SAT 100
[2024-11-14 17:03] VITALS: BP 147/78; PULSE 41; RESP 16; TEMP 98; O2SAT 93
[2024-11-14] MEDS: CYANOCOBALAMIN (B-12) 1000 MCG/1 ML VIAL IM ONE (17:24)
[2024-11-14 20:00] VITALS: PULSE 79; RESP 20
[2024-11-14 21:00] VITALS: BP 153/85; PULSE 79; RESP 16; TEMP 98.5; O2SAT 97
[2024-11-14] MEDS: ATORVASTATIN 20 MG TAB PO SCH (21:34)
[2024-11-15 01:00] VITALS: BP 133/66; PULSE 79; RESP 15; TEMP 98; O2SAT 93
[2024-11-15 05:00] VITALS: BP 153/84; PULSE 83; RESP 16; TEMP 97.6; O2SAT 96
[2024-11-15 06:59] LABS: Potassium 3.9 mmol/L (3.5-5.1); Sodium 139 mmol/L (136-145)
[2024-11-15 07:00] LABS: Anion Gap 7 (5-15); Carbon Dioxide 24 mmol/L (20-31)
[2024-11-15 07:05] LABS: BUN/Creatinine Ratio 10.5 (10.0-20.0); Blood Urea Nitrogen 10 mg/dL (9-23)
[2024-11-15 07:06] LABS: Calcium 10.5 mg/dL (8.7-10.4); Chloride 108 mmol/L (98-107); Glucose 150 mg/dL (74-106)
[2024-11-15 08:00] VITALS: PULSE 60; PULSE 78; RESP 16; O2SAT 96
[2024-11-15] MEDS ORDERED: MAGNESIUM SULFATE 1GM/100ML 100 ML IV ONE (08:00)
[2024-11-15] MEDS ORDERED: CYANOCOBALAMIN (B-12) 1000 MCG/1 ML VIAL IM ONE (08:00)
[2024-11-15 09:00] VITALS: BP 187/91; PULSE 76; RESP 16; TEMP 97.6; O2SAT 100
[2024-11-15] MEDS: ERGOCALCIFEROL 50,000 UNIT(1.25MG) CAP PO SCH (09:43)
[2024-11-15] MEDS: cloNIDine HCL 0.1 MG TAB PO ONE (09:44)
[2024-11-15 09:49] VITALS: BP 140/82; PULSE 77; RESP 18; TEMP 97.8; O2SAT 95
--- NOTE | 2024-11-15 10:09 | DVHDS2 ---
Discharge Summary Date of Admission Nov 14, 2024 at 01:20 Date of Discharge: Nov 15, 2024 Labs/Diagnostic Data: Laboratory Results Test 11/15/24 06:16 11/15/24 05:42 11/14/24 05:03 11/14/24 02:16 POC Glucose 188 mg/dl (70-106) Sodium Level 139 mmol/L (136-145) Potassium Level 3.9 mmol/L (3.5-5.1) Chloride Level 108 mmol/L (98-107) Carbon Dioxide Level 24 mmol/L (20-31) Anion Gap 7 (5-15) Blood Urea Nitrogen 10 mg/dL (9-23) Creatinine 0.95 mg/dL (0.550-1.02) Glomerular Filtration Rate Calc 66 mL/min (>90) BUN/Creatinine Ratio 10.5 (10.0-20.0) Serum Glucose 150 mg/dL (74-106) Calcium Level 10.5 mg/dL (8.7-10.4) Magnesium Level 2.0 mg/dL (1.6-2.6) White Blood Count 6.9 10^3/uL (4.4-10.8) Red Blood Count 5.08 10^6/uL (4.0-5.20) Hemoglobin 14.9 g/dL (12.2-16.2) Hematocrit 45.5 % (36.0-46.0) Mean Corpuscular Volume 89.5 fL (80.0-100.0) Mean Corpuscular Hemoglobin 29.4 pg (28.0-32.0) Mean Corpuscular Hemoglobin Concent 32.8 g/dL (32.0-36.0) Red Cell Distribution Width 13.6 % (11.8-14.3) Platelet Count 235 10^3/uL (140-450) Mean Platelet Volume 8.4 fL (6.9-10.8) Neutrophils (%) (Auto) 54.7 % (37.0-80.0) Lymphocytes (%) (Auto) 34.4 % (10.0-50.0) Monocytes (%) (Auto) 8.2 % (0.0-12.0) Eosinophils (%) (Auto) 1.4 % (0.0-7.0) Basophils (%) (Auto) 1.3 % (0.0-2.0) Neutrophils # (Auto) 3.8 10 ^3/uL (1.6-8.6) Lymphocytes # (Auto) 2.4 10 ^3/uL (0.4-5.4) Monocytes # (Auto) 0.6 10 ^3/uL (0-1.3) Eosinophils # (Auto) 0.1 10 ^3/uL (0-0.8) Basophils # (Auto) 0.1 10 ^3/uL (0-0.2) Nucleated Red Blood Cells 0.2 % Hemoglobin A1c 8.8 % A1C (<5.7) B-Type Natriuretic Peptide 132.11 pg/mL (0-100) Triglycerides Level 113 mg/dL (< 150) Cholesterol Level 160 mg/dL (< 200) LDL Cholesterol 96 mg/dL (< 100) HDL Cholesterol 53 mg/dL (40-59) Vitamin B12 Level 345 pg/mL (211-911) Folic Acid 12.53 ng/mL (>5.38) Thyroid Stimulating Hormone (TSH) 1.15 uIU/mL (0.55-4.78) Influenza Type A Antigen Negative (Negative) Influenza Type B Antigen Negative (Negative) SARS-CoV-2 Antigen (Rapid) Negative (NEGATIVE) Test 11/13/24 23:16 Troponin I High Sensitivity 6 ng/L (</=34) Other Laboratory Tests 11/15/24 05:42 11/14/24 05:03 Brief Hx & Hospital Course: Lucinda Solis is a 69-year-old female with a PMH of HTN, HLD, COPD, type 2 DM, CVA, active smoker presented to the ED with the chief complaints of near syncopal event. Patient reported yesterday after lunch, sister and, felt suddenly dizzy and fall down without loss of consciousness, witnessed by family. Patient was seen in cardiology consult, symptoms likely due to vasovagal episodes. Patient advised to monitor blood sugars and blood pressures at home, record reading and take to PCP office. Condition at Discharge: Poor Final Diagnosis/Problems List Near syncopal event likely due to autonomic instability, ruled out stroke/arrhythmia DM2 Discharge Disposition: Home Discharge Instruct/Medications Diet: Cardiac 2g Na,low cholest Activity: Light activity Follow Up/Referral: pcp Discharge Statement: "Patient was advised to return to the ER or call 911 if any headaches, dizziness, shortness of breath, chest pain, abdominal pain, bleeding, fevers, or worsening of medical condition. Patient was counseled about treatment plan, medications, possible side effects, patientverbalized understanding. All questions were answered to the best of my ability. This discharge took greater then 30 minutes in planning, reviewing documentation, counseling the patient, and discussing with other team members." ASSESSMENT ASSESSMENT Assessment Near syncopal event likely due to autonomic instability, ruled out stroke/arrhythmia Date of Service: Nov 15, 2024 Billing Provider: EDINSON CARDOZO MD Common Visit Codes: 21202-YEO/OBS DISCH DAY >30min EDINSON CARDOZO MD Nov 15, 2024 10:09
[2024-11-15 10:37] VITALS: BP 140/82; PULSE 88
== END 2024-11-15 11:51 | disposition home or self-care (01) | DRG 73 ==
LOC: EDBD 21:38 → ER 21:38 → TELE 11-14 01:20 → TELE-CENTR 11-14 14:44 → CENTRAL 11-14 23:42
PROVIDERS: ADMIT Internal Medicine; ATTEND Internal Medicine
DX: G90.89 Other disorders of autonomic nervous system (principal); N17.0 Acute kidney failure with tubular necrosis; I16.1 Hypertensive emergency; E86.0 Dehydration; Z20.822 Contact with and (suspected) exposure to COVID-19; J44.9 Chronic obstructive pulmonary disease, unspecified; F03.90 Unspecified dementia, unspecified severity, without behavioral disturbance, psychotic disturbance, mood disturbance, and anxiety; E78.5 Hyperlipidemia, unspecified; E11.9 Type 2 diabetes mellitus without complications; I10 Essential (primary) hypertension; E83.52 Hypercalcemia; Z86.73 Personal history of transient ischemic attack (TIA), and cerebral infarction without residual deficits; Z87.891 Personal history of nicotine dependence; Z88.5 Allergy status to narcotic agent; Z88.8 Allergy status to other drugs, medicaments and biological substances
CPT/HCPCS: 36415; 70450; 71045; 80048; 80061; 82607; 82746; 82962; 83036; 83735; 83880; 84443; 84484; 85025; 87426; 87804; 93005; 93306; 93886; 96360; 97163; G0378; J1815

== ENCOUNTER → 2024-12-01 | Outpatient (CLI) | payer OTHER ==
[2024-12-01 11:11] LABS: Basophils # (auto) 0.2 10 ^3/uL (0-0.2); Basophils % (auto) 3.6 % (0.0-2.0); Eosinophils # (auto) 0.1 10 ^3/uL (0-0.8); Eosinophils % (auto) 2.1 % (0.0-7.0); Hemoglobin 15.5 g/dL (12.2-16.2); Lymphocytes # (auto) 1.8 10 ^3/uL (0.4-5.4); Lymphocytes % (auto) 34.6 % (10.0-50.0); Mean Corpuscular Hemoglobin 29.7 pg (28.0-32.0); Monocytes # (auto) 0.3 10 ^3/uL (0-1.3); Monocytes % (auto) 6.2 % (0.0-12.0); Neutrophils # (auto) 2.8 10 ^3/uL (1.6-8.6); Neutrophils % (auto) 53.5 % (37.0-80.0); Nucleated Red Blood Cells % 0.1 %; Platelet Count (auto) 202 10^3/uL (140-450); Red Blood Cells 5.23 10^6/uL (4.0-5.20); Red Cell Distribution Width 13.8 % (11.8-14.3); White Blood Cell 5.3 10^3/uL (4.4-10.8)
[2024-12-01 11:16] LABS: Albumin 4.5 g/dL (3.2-4.8); Alkaline Phosphatase 65 U/L (46-116); Anion Gap 7 (5-15); BUN/Creatinine Ratio 10.7 (10.0-20.0); Blood Urea Nitrogen 9 mg/dL (9-23); Carbon Dioxide 27 mmol/L (20-31); Cholesterol 139 mg/dL (< 200); LDL Cholesterol 63 mg/dL (< 100); Potassium 3.6 mmol/L (3.5-5.1); Sodium 142 mmol/L (136-145); Triglycerides 85 mg/dL (< 150)
[2024-12-01 11:17] LABS: Alanine Aminotransferase < 9 U/L (7-40); Aspartate Aminotransferase 11 U/L (13-40); Bilirubin, Total 0.4 mg/dL (0.2-1.0); Calcium 10.9 mg/dL (8.7-10.4); Chloride 108 mmol/L (98-107); Glucose 216 mg/dL (74-106); HDL Cholesterol 67 mg/dL (40-59); Total Protein 7.7 g/dL (5.7-8.2)
[2024-12-01 11:18] LABS: Free T4 (Free Thyroxine) 1.06 ng/dL (0.89-1.76)
[2024-12-01 11:20] LABS: Urine Bacteria FEW /hpf (None Seen); Urine Blood Negative /uL (Negative); Urine Clarity Clear (Clear); Urine Color Yellow (Yellow); Urine Protein, UAD TRACE (Negative); Urine Specific Gravity 1.026 (1.001-1.035); Urine Squamous Epithelial Cell FEW /hpf (<5); Urine Urobilinogen 2 mg/dL (Negative); Urine WBC 7 /hpf (0 - 5)
== END | disposition home or self-care (01) ==
LOC: LAB 10:07
DX: E11.22 Type 2 diabetes mellitus with diabetic chronic kidney disease (principal); E11.65 Type 2 diabetes mellitus with hyperglycemia; N18.30 Chronic kidney disease, stage 3 unspecified; E78.5 Hyperlipidemia, unspecified; E55.9 Vitamin D deficiency, unspecified; E03.9 Hypothyroidism, unspecified
CPT/HCPCS: 36415; 80053; 80061; 81001; 82306; 82607; 83036; 84439; 84443; 85025

== ENCOUNTER 2025-05-02 10:07 | Outpatient (CLI) | payer OTHER ==
[2025-05-02 10:57] LABS: Alanine Aminotransferase < 9 U/L (7-40); Albumin 4.4 g/dL (3.2-4.8); Alkaline Phosphatase 63 U/L (46-116); Anion Gap 9 (5-15); Aspartate Aminotransferase 10 U/L (13-40); BUN/Creatinine Ratio 14.5 (10.0-20.0); Blood Urea Nitrogen 16 mg/dL (9-23); Calcium 10.5 mg/dL (8.7-10.4); Carbon Dioxide 24 mmol/L (20-31); Chloride 109 mmol/L (98-107); Cholesterol 186 mg/dL (< 200); Glucose 166 mg/dL (74-106); HDL Cholesterol 50 mg/dL (40-59); LDL Cholesterol 121 mg/dL (< 100); Potassium 4.2 mmol/L (3.5-5.1); Sodium 142 mmol/L (136-145); Total Protein 7.2 g/dL (5.7-8.2); Triglycerides 122 mg/dL (< 150)
[2025-05-02 10:58] LABS: Bilirubin, Total 0.4 mg/dL (0.2-1.0)
[2025-05-02 11:14] LABS: Basophils # (auto) 0.1 10 ^3/uL (0-0.2); Basophils % (auto) 1.2 % (0.0-2.0); Eosinophils # (auto) 0.1 10 ^3/uL (0-0.8); Eosinophils % (auto) 2.1 % (0.0-7.0); Hematocrit 43.6 % (36.0-46.0); Hemoglobin 14.7 g/dL (12.2-16.2); Lymphocytes # (auto) 2.4 10 ^3/uL (0.4-5.4); Lymphocytes % (auto) 36.2 % (10.0-50.0); Mean Corpuscular Hemoglobin 29.2 pg (28.0-32.0); Mean Corpuscular Hgb Conc. 33.6 g/dL (32.0-36.0); Mean Corpuscular Volume 86.7 fL (80.0-100.0); Monocytes # (auto) 0.5 10 ^3/uL (0-1.3); Monocytes % (auto) 7.1 % (0.0-12.0); Neutrophils # (auto) 3.6 10 ^3/uL (1.6-8.6); Neutrophils % (auto) 53.4 % (37.0-80.0); Platelet Count (auto) 221 10^3/uL (140-450); Red Blood Cells 5.02 10^6/uL (4.0-5.20); Red Cell Distribution Width 13.5 % (11.8-14.3); White Blood Cell 6.7 10^3/uL (4.4-10.8)
== END 2025-05-02 17:00 | disposition home or self-care (01) ==
LOC: LAB 10:07
PROVIDERS: ATTEND Nurse Practitioner Family
DX: E11.9 Type 2 diabetes mellitus without complications (principal); E78.5 Hyperlipidemia, unspecified; E55.9 Vitamin D deficiency, unspecified; E03.9 Hypothyroidism, unspecified; Z11.3 Encounter for screening for infections with a predominantly sexual mode of transmission
CPT/HCPCS: 36415; 80053; 80061; 82306; 83036; 84439; 84443; 85025

== ENCOUNTER 2025-08-14 09:42 | Outpatient (CLI) | payer OTHER ==
[2025-08-14 11:23] LABS: Alkaline Phosphatase 60 U/L (46-116); Anion Gap 10 (5-15); BUN/Creatinine Ratio 15.5 (10.0-20.0); Blood Urea Nitrogen 13 mg/dL (9-23); Calcium 10.2 mg/dL (8.7-10.4); Carbon Dioxide 24 mmol/L (20-31); Potassium 4.0 mmol/L (3.5-5.1); Sodium 144 mmol/L (136-145)
[2025-08-14 11:24] LABS: Total Protein 7.8 g/dL (5.7-8.2)
[2025-08-14 11:25] LABS: Albumin 4.6 g/dL (3.2-4.8); Bilirubin, Total 0.4 mg/dL (0.2-1.0)
[2025-08-14 11:26] LABS: Alanine Aminotransferase < 9 U/L (7-40); Chloride 110 mmol/L (98-107); Glucose 156 mg/dL (74-106)
[2025-08-14 11:48] LABS: Cholesterol 112 mg/dL (< 200); Triglycerides 72 mg/dL (< 150)
[2025-08-14 12:03] LABS: HDL Cholesterol 53 mg/dL (40-59)
== END 2025-08-14 17:00 | disposition home or self-care (01) ==
LOC: LAB 09:42
PROVIDERS: ATTEND Nurse Practitioner Family
DX: I10 Essential (primary) hypertension (principal); E03.9 Hypothyroidism, unspecified; E78.5 Hyperlipidemia, unspecified; E55.9 Vitamin D deficiency, unspecified; R50.9 Fever, unspecified; Z11.3 Encounter for screening for infections with a predominantly sexual mode of transmission; Z11.1 Encounter for screening for respiratory tuberculosis
CPT/HCPCS: 36415; 80053; 80061; 82274; 82306; 83036; 84443